=== PATIENT | female | born 1990 | race Caucasian/White ===

== ENCOUNTER 2019-07-11 01:36 | Emergency (ER) | payer MEDICAID ==
[~2019-07-11] VITALS: Ht 160 cm; Wt 59.0 kg
[2019-07-11 01:40] VITALS: BP_SYST 130
--- NOTE | 2019-07-11 01:45 | NUR ---
Patient to ER CHAIR to gown for evaluation. Side rails up. Report given to RUIZ BARROS.
--- NOTE | 2019-07-11 01:50 | NUR ---
Patient accompanied by LASD for medical clearance. Patient denies any pain, N/V, diarrhea. Pt has Diabetes. In ED accucheck was 90. No other injuries/complaints per patient or noted.
--- NOTE | 2019-07-11 03:00 | NUR ---
ER Dr. Miramontes at bedside examining patient.
[2019-07-11 03:15] VITALS: BP_SYST 130
--- NOTE | 2019-07-11 03:15 | NUR ---
Patient given written and verbal discharge instructions and verbalizes understanding. ER MD discussed with patient the results and treatment provided. Patient in stable condition. ID arm band removed. No Rx given. Patient educated on pain management and to follow up with PMD. Pain Scale 0. Accompanied by LASD [employer] for questions provided and answered. Medication side effect fact sheet provided.
== END 2019-07-11 03:15 | disposition home or self-care (01) ==
LOC: SED 01:36
DX: Z02.89 Encounter for other administrative examinations (principal); F12.90 Cannabis use, unspecified, uncomplicated; E11.9 Type 2 diabetes mellitus without complications
CPT/HCPCS: 82962; 99282; 99283